=== PATIENT | male | born 1960 | race American Indian/Alaskan Native ===

== ENCOUNTER → 2016-07-20 | Outpatient (CLI) | payer OTHER ==
[~2016-07-20] MED LIST: ALLO100T PO; ASPI81CH2 PO; CLON0.1T12 PO; CYCL10TA6 PO; FENO200C6 PO; HYDR-3983 PO; LISI-461 PO; LOVA40TA4 PO; METO50TA7 PO; OMG3 PO
--- NOTE | 2016-07-20 10:15 | DIAGNOSTIC IMAGING REPORT ---
LEG LENGTH STUDY CLINICAL HISTORY: Lumbago. Leg length discrepancy. FINDINGS: 5 views of the lower extremities from a leg length examination are presented. The skeletal structures appear well mineralized. No fracture is identified involving the lower extremities or the bony pelvis. The hip, knee, and ankle joints are grossly maintained. The right lower extremity measures 88.1 cm and the left lower extremity measures 88.9 cm as measured from the femoral head to the tibial plafond. Surgical clips project over the spermatic cord bilaterally. The overlying soft tissues are otherwise normal in appearance. IMPRESSION: 8 mm of leg length discrepancy as above. Electronically signed by: Edmundo Irene M.D. 07/20/2016 10:14 AM Dictated Date/Time: 07/20/2016 10:12 AM
== END | disposition home or self-care (01) ==
LOC: C.RADBC 09:34
PROVIDERS: ATTEND Anesthesiology
DX: M54.5 Low back pain (principal); M21.751 Unequal limb length (acquired), right femur

== ENCOUNTER 2024-06-03 12:55 | Inpatient (IN) ==
--- NOTE | 2024-06-03 14:28 | Emergency Department Note ---
History of Present Illness General Chief complaint: Back Injury/Pain Stated complaint: LOWER BACK PAIN, LT LEG PAIN Time Seen by Provider: 06/03/24 14:14 History of Present Illness Maximum Pain Intensity: 10 This is a 63-year-old male that presents to the emergency department via private vehicle accompanied by loi with complaints of "back pain, lower extremity pain". The patient notes that this past Sunday he was lifting a heavy item when he notes that he then developed some back pain that has progressively worsened since that time. He previously has followed with pain management noting ongoing low back pain however today's presentation is different as he notes pain is now down the bilateral legs insead of just one. He tried biking earlier today without any relief of his symptoms. He notes that both legs are "numb". He does have history of nerve ablation previously. Patient denies any incontinence but does note perhaps some numbness overall. He does note some leg weakness with the back pain. Current pain 10/10. No abdominal pain. No preceding illness. No fevers or chills. No dysuria. No diarrhea. No vomiting. Home Medications Medication Instructions Recorded Confirmed Type naloxone 1 mg/mL injection syringe 1 mg IM ONCE PRN opioid overdose 12/19/18 05/12/24 Rx #2 mL albuterol sulfate 90 mcg/actuation 2 puffs inhalation Q4H PRN 08/22/19 05/12/24 Rx aerosol inhaler shortness of breath or wheezing #8.5 grams fenofibrate micronized 200 mg 200 mg PO DAILY #90 caps 04/09/23 05/12/24 Rx capsule lisinopril 30 mg tablet 30 mg PO DAILY #90 tabs 08/01/23 05/12/24 Rx metoprolol succinate 50 mg 50 mg PO DAILY #90 tabs 08/20/23 05/12/24 Rx tablet,extended release 24 hr rosuvastatin 20 mg tablet 20 mg PO DAILY #90 tabs 08/20/23 05/12/24 Rx nitroglycerin 0.4 mg sublingual 0.4 mg sublingual Q5M PRN chest 09/27/23 05/12/24 Rx tablet pain #25 tabs allopurinol 300 mg tablet 600 mg (2 x 300 mg) PO DAILY #180 10/22/23 05/12/24 Rx tabs sildenafil 100 mg tablet See Rx Instructions PO DAILY PRN 11/01/23 05/12/24 Rx sexual activity #30 tabs aspirin 81 mg tablet,delayed 81 mg PO DAILY 01/08/24 05/12/24 History release hydrocodone 7.5 mg-acetaminophen 1 - 2 tab PO .Q4-6HRS PRN pain 05/16/24 Rx 325 mg tablet #210 tabs Allergies Allergy/AdvReac Type Severity Reaction Status Date / Time iodine Allergy Severe RASH, HIVES Verified 05/12/24 08:27 atorvastatin AdvReac Intermediate ACHEY, Verified 05/12/24 08:27 JOINT STIFFNESS ezetimibe AdvReac Intermediate JOINT Verified 05/12/24 08:27 PAIN/STIFFNESS Past Med/Surg History Problem List (Updated 06/03/24 @ 22:16 by Rene Jewell PA-C) Low back pain (Acute) Bilateral lumbar radiculopathy (Acute) Osteoporosis Knee pain, right Spinal stenosis of lumbar region S/P coronary artery stent placement Colon cancer screening Myofascial pain Lumbar facet joint syndrome Left hip pain Left lumbar radiculitis Chronic narcotic use Carpal tunnel syndrome, left Chronic low back pain Gout Prediabetes Hypercholesterolemia (Chronic) History of heart artery stent (Chronic) "x 6" Gout (Chronic) Coronary artery disease (Chronic) Male erectile disorder (Acute) Lumbar radiculopathy (Acute) Hyperlipidemia (Acute) Cervicalgia of ycajbzty-hesehuw-qhqkk region (Acute) Cervical radicular pain (Acute) Carpal tunnel syndrome, bilateral (Acute) Benign essential hypertension (Acute) Ureteral stone (Acute) Medical History Fatigue Non-restorative sleep Snoring Hypokalemia Dyslipidemia Urinary frequency Prostate cancer screening declined Open wound of thumb Close exposure to COVID-19 virus Cough COVID-19 virus infection Chronic back pain Surgical History Trigger finger History of colonoscopy History of cardiac cath Family History Other Colonic polyp No pertinent family history Social History Smoking Status: Never smoker Hx Alcohol Use: Yes Hx Substance Use: No Preferred Language: Guatemalan Communication Ability: Effective Visual Impairment: No Limitations Hearing Ability: Normal Electromedical Equipment Repairer Required: No Beliefs That Will Affect Care: None marital status: Current Living Situation: Alone current occupational status: employed current occupation: [employer] Feels Safe at Home: Yes Childhood Exposure to Second-Hand Smoke: Yes caffeine: Yes during the past year weight has: remained stable Dental Care, Regularly: Yes Physical Activity Frequency: 3-4 Times per Week Physical Activity Frequency Comment: WALK, LIFT WEIGHTS, HIKE Seatbelt Use: always Sunscreen Use: Yes Review of Systems A total of 10 systems reviewed and were otherwise negative Physical Exam Vital Signs Vital Signs - 24 hr 06/03/24 13:10 06/03/24 15:01 06/03/24 15:08 Temperature 36.1 C L Temperature Source Temporal Artery Scan Pulse Rate 72 Pulse Rate [Apical] Respiratory Rate 16 24 20 Respiratory Effort / Characteristics Non-Labored Spontaneous Non-Labored Respiratory Depth Normal Normal Respiratory Pattern Regular Blood Pressure 134/87 Blood Pressure [Right Arm] Blood Pressure Mean 102 Blood Pressure Mean [Right Arm] Pulse Oximetry 98 95 Oxygen Delivery Method Room Air Room Air Sepsis Recent Fever Within 48 Hours No Sepsis New/Unexplained Change in Mental Status No Sepsis Action Taken by Nursing No Action Required 06/03/24 15:09 06/03/24 15:10 06/03/24 18:26 Temperature Temperature Source Pulse Rate 68 Pulse Rate [Apical] 70 70 Respiratory Rate 20 20 Respiratory Effort / Characteristics Non-Labored Respiratory Depth Normal Normal Respiratory Pattern Blood Pressure Blood Pressure [Right Arm] 165/97 H 162/84 H Blood Pressure Mean Blood Pressure Mean [Right Arm] 119 110 Pulse Oximetry 97 93 Oxygen Delivery Method Room Air Room Air Sepsis Recent Fever Within 48 Hours Sepsis New/Unexplained Change in Mental Status Sepsis Action Taken by Nursing 06/03/24 18:57 06/03/24 21:28 Temperature Temperature Source Pulse Rate 75 78 Pulse Rate [Apical] Respiratory Rate 16 Respiratory Effort / Characteristics Respiratory Depth Respiratory Pattern Blood Pressure 151/95 H Blood Pressure [Right Arm] Blood Pressure Mean 113 Blood Pressure Mean [Right Arm] Pulse Oximetry 95 Oxygen Delivery Method Room Air Sepsis Recent Fever Within 48 Hours Sepsis New/Unexplained Change in Mental Status Sepsis Action Taken by Nursing VITAL SIGNS - Vital signs and nursing notes were reviewed. Stable, afebrile. GENERAL -63-year-old male appearing his stated age who is in no acute distress. Patient is sitting upright in the examination bed. Well-appearing and nontoxic. Communicates well with provider and answers questions appropriately. SKIN - Without rashes. No meningeal or petechial rash. HEAD - NC/AT. EYES - Sclera anicteric. EARS - No deformities of external structures noted on gross examination bilaterally. NOSE - Midline and without cyanosis. No epistaxis or purulent drainage noted. MOUTH/OROPHARYNX - Without perioral cyanosis. NECK - Neck with FROM. No nuchal rigidity. LUNGS -clear to auscultation CARDIAC -regular rate and rhythm. ABDOMEN - Abdominal contour normal without pulsations or visible masses. BS normoactive all four quadrants. No tenderness, palpable masses, hepatosplenomegaly, or ascites noted. MUSCULOSKELETALthere is reproducible tenderness overlying the paraspinous musculature of the L-spine. No bony step-off or deformity. EXTREMITIES - No clubbing or peripheral cyanosis. No pretibial edema present. +5/5 strength noted in UE/LE bilaterally. NEUROLOGIC - Cranial nerves grossly intact. Sensory intact to light touch throughout the lower extremities without deficit. Patellar reflexes +2/4. PSYCH -alert, oriented and pleasant on exam. Course Administered Medications Miscellaneous (Remove Lidoderm Patch) 1 each N/A DAILY@2100 [facility] Stop: 07/03/24 20:59 Last Admin: 06/03/24 20:22 Dose: Not Given Documented By: KMS Discontinued Medications Dexamethasone Sodium Phosphate (DexamethasonePf 10 Mg/Ml Vial) 10 mg IV NOW ONE Stop: 06/03/24 15:40 Last Admin: 06/03/24 15:51 Dose: 10 mg Documented By: BERTHA Fentanyl Citrate (Fentanyl Citrate Pf 100 Mcg/2 Ml Vial) 100 mcg IV NOW STA Stop: 06/03/24 18:27 Last Admin: 06/03/24 18:32 Dose: 100 mcg Documented By: BERTHA Hydromorphone HCl (Hydromorphone Inj 0.5 Mg/0.5 Ml Syr) 0.5 mg IV NOW STA Stop: 06/03/24 14:29 Last Admin: 06/03/24 14:44 Dose: 0.5 mg Documented By: MAKENZIE Hydromorphone HCl (Hydromorphone Inj 0.5 Mg/0.5 Ml Syr) 0.5 mg IV NOW STA Stop: 06/03/24 15:39 Last Admin: 06/03/24 15:52 Dose: 0.5 mg Documented By: BERTAH Hydromorphone HCl (Hydromorphone Inj 1 Mg/Ml Syringe) 1 mg IV NOW STA Stop: 06/03/24 17:22 Last Admin: 06/03/24 17:27 Dose: 1 mg Documented By: BERTHA Hydromorphone HCl (Hydromorphone Inj 0.5 Mg/0.5 Ml Syr) 0.5 mg IV NOW STA Stop: 06/03/24 20:37 Last Admin: 06/03/24 20:42 Dose: 0.5 mg Documented By: CAT Acetaminophen (Ofirmev) 1,000 mg in 100 mls @ 400 mls/hr IV NOW STA Stop: 06/03/24 19:45 Last Infusion: 06/03/24 19:50 Dose: Infused Documented By: Admin: 06/03/24 19:35 Dose: 400 mls/hr Documented By: ALICIA Ketorolac Tromethamine (Ketorolac Tromethamine 15 Mg/Ml Vial) 10 mg IV NOW ONE Stop: 06/03/24 15:40 Last Admin: 06/03/24 15:51 Dose: 10 mg Documented By: BERTHA Lidocaine (Lidocaine 5% 1 Patch) 1 patch TD NOW STA Stop: 06/03/24 15:40 Last Admin: 06/03/24 15:51 Dose: 1 patch Documented By: BERTHA Lorazepam (Lorazepam 2 Mg/1 Ml Vial) 0.5 mg IV NOW STA Stop: 06/03/24 20:33 Last Admin: 06/03/24 21:45 Dose: Not Given Documented By: CAT Ondansetron HCl (Ondansetron Inj 2 Mg/Ml 2 Ml Vial) 4 mg IV NOW STA Stop: 06/03/24 14:29 Last Admin: 06/03/24 14:44 Dose: 4 mg Documented By: MAKENZIE Medical Decision Making Laboratory Data 06/03/24 14:30 06/03/24 14:30 Lab Results 06/03/24 Range/Units 14:30 WBC 6.99 (4.8-10.8) K/ul RBC 4.26 L (4.70-6.10) M/uL Hgb 13.7 L (14.0-18.0) g/dl Hct 40.4 L (42.0-52.0) % MCV 94.8 (80.0-100.0) fL MCH 32.2 (25.0-34.0) pg MCHC 33.9 (32.0-36.0) g/dL RDW Std Deviation 43.0 (36.4-46.3) fL RDW Coeff of Lydia 12.4 (11.5-14.5) % Plt Count 174 (130-400) K/uL MPV 9.7 (9.4-12.4) fL Immature Gran % (Auto) 0.3 % Neut % (Auto) 70.5 % Lymph % (Auto) 17.6 % Cedar % (Auto) 10.7 % Eos % (Auto) 0.6 % Baso % (Auto) 0.3 % Neut # (Auto) 4.93 (1.40-6.50) K/uL Lymph # (Auto) 1.23 (1.20-3.40) K/uL Cedar # (Auto) 0.75 H (0.11-0.59) K/uL Eos # (Auto) 0.04 (0.00-0.50) K/uL Baso # (Auto) 0.02 (0.00-0.20) K/uL Immature Gran # (Auto) 0.02 (0.01-0.20) K/uL Sodium 139 (136-145) mmol/L Potassium 4.1 (3.5-5.1) mmol/L Chloride 105 (98-107) mmol/L Carbon Dioxide 26 (21-32) mmol/L Anion Gap 8 (3-11) BUN 18 (6-23) mg/dl Creatinine 0.88 (0.6-1.4) mg/dl Est Cr Clr Drug Dosing Not Reportable eGFR 96.02 BUN/Creatinine Ratio 20.5 H (10-20) Glucose 120 H (70-99(Fasting)) mg/dl Calcium 10.5 H (8.6-10.3) mg/dl Total Bilirubin 0.5 (0.2-1.0) mg/dl AST 51 H (13-39) U/L ALT 42 (7-52) U/L Alkaline Phosphatase 55 (34-104) U/L Total Protein 7.2 (6.0-8.3) gm/dl Albumin 4.3 (3.4-5.0) gm/dl Globulin 2.9 (2.5-4.0) gm/dl Albumin/Globulin Ratio 1.5 (0.9-2) MDM Narrative Patient was seen and evaluated as above in room D03a. Review was performed of triage nursing notes and vital signs. Patient presents for evaluation of back pain down the legs with some numbness. Patient clinically well-appearing and nontoxic. Neurovascularly intact however cannot lay flat without severe pain. At this time noting the patient's past medical history and presentation today I do recommend MRI of the L-spine. Laboratory studies reveal no leukocytosis. Minor anemia noted with hemoglobin of 13.7. No emergent metabolic disturbance. Mild AST elevation of 51. Mild hypercalcemia 10.5. Mild hyperglycemia at 120. Patient was medicated here with several different types of IV analgesia as well as IV steroid for its anti-inflammatory effect. It was felt that the benefit of the medication outweighed risk. Despite medication, the patient continues with significant pain particularly when he attempts to lie flat therefore having difficulty laying flat to obtain MRI. Patient was carefully monitored throughout his time here in regard to pulse oxygenation noting medication received and clinically has been doing well. Patient is currently pending MRI at this time and seeing pain response to analgesia. Case signed out to Juan Francisco Schwartz PA-C at 5:50 PM at shift change. Please refer to further documentation regarding the patient's stay. GCS: 15 In the evaluation and treatment of this patient the following differential diagnoses were entertained: Sprain, strain, fracture, dislocation, subluxation, contusion, cauda equina syndrome, among others Impression & Plan Bilateral lumbar radiculopathy, Low back pain Discharge Plan Visit Data Chief Complaint: Back Injury/Pain Stated Complaint: LOWER BACK PAIN, LT LEG PAIN ED Provider: Paco Terrell ED Midlevel Provider: Juan Francisco Schwartz Discharge Problem: Bilateral lumbar radiculopathy, Low back pain Patient Disposition: Still a Patient Condition: Good Forms Stand Alone Forms: My [facility] [employer] Prescriptions Prescriptions: No Action fenofibrate micronized 200 mg capsule 200 mg PO DAILY Qty: 90 3RF lisinopril 30 mg tablet 30 mg PO DAILY Qty: 90 3RF rosuvastatin 20 mg tablet 20 mg PO DAILY Qty: 90 3RF Rx Instructions: per Dr. Gomez 09/2020 metoprolol succinate 50 mg tablet extended release 24 hr 50 mg PO DAILY Qty: 90 3RF nitroglycerin 0.4 mg tablet, sublingual 0.4 mg SL Q5M PRN (Reason: chest pain) Qty: 25 3RF Rx Instructions: pt does not need immediately. allopurinol 300 mg tablet 600 mg PO DAILY Qty: 180 3RF sildenafil 100 mg tablet See Rx Instructions PO DAILY PRN (Reason: sexual activity) Qty: 30 11RF Rx Instructions: 1/2-1 tab PO daily PRN; administer 30 minutes to 4 hours before activity hydrocodone-acetaminophen 7.5-325 mg tablet 1 - 2 tab PO .Q4-6HRS MDD 7 PRN (Reason: pain) Qty: 210 0RF naloxone 1 mg/mL syringe 1 mg IM ONCE PRN (Reason: opioid overdose) Qty: 2 0RF albuterol sulfate 90 mcg/actuation HFA aerosol inhaler 2 puffs INH Q4H PRN (Reason: shortness of breath or wheezing) Qty: 8.5 5RF aspirin 81 mg Tablet,Delayed Release (/Ec) 81 mg PO DAILY Referrals Referrals: Edmundo Luz MD [Primary Care Provider] -
[2024-06-03] MEDS: HYDROmorphone INJ 0.5 MG/0.5 ML SYR IV STA ×3 (14:44→20:42)
[2024-06-03] MEDS: ONDANSETRON INJ 2 MG/ML 2 ML VIAL IV STA (14:44)
[2024-06-03 15:14] LABS: Basophils # (auto) 0.02 K/uL (0.00-0.20); Basophils % (auto) 0.3 %; Eosinophils # (auto) 0.04 K/uL (0.00-0.50); Eosinophils % (auto) 0.6 %; Hematocrit (blood only) 40.4 % (42.0-52.0); Hemoglobin 13.7 g/dl (14.0-18.0); Immature Granulocytes # (auto) 0.02 K/uL (0.01-0.20); Immature Granulocytes % (auto) 0.3 %; Lymphocytes # (auto) 1.23 K/uL (1.20-3.40); Lymphocytes % (auto) 17.6 %; Mean Corpuscular Hemoglobin 32.2 pg (25.0-34.0); Mean Corpuscular Hgb Conc 33.9 g/dL (32.0-36.0); Mean Corpuscular Volume 94.8 fL (80.0-100.0); Mean Platelet Volume 9.7 fL (9.4-12.4); Monocytes # (auto) 0.75 K/uL (0.11-0.59); Monocytes % (auto) 10.7 %; Neutrophils # (auto) 4.93 K/uL (1.40-6.50); Neutrophils % (auto) 70.5 %; Platelet Count 174 K/uL (130-400); RDW Coefficient of Variation 12.4 % (11.5-14.5); Red Blood Count 4.26 M/uL (4.70-6.10); White Blood Count 6.99 K/ul (4.8-10.8)
[2024-06-03] MEDS: LIDOCAINE 5% 1 PATCH TD STA (15:51)
[2024-06-03] MEDS: KETOROLAC TROMETHAMINE 15 MG/ML VIAL IV ONE (15:51)
[2024-06-03] MEDS: dexAMETHasone**PF** 10 MG/ML VIAL IV ONE (15:51)
[2024-06-03 16:01] LABS: Albumin Level 4.3 gm/dl (3.4-5.0); Anion Gap 8 (3-11); Bilirubin,Total 0.5 mg/dl (0.2-1.0); Calcium 10.5 mg/dl (8.6-10.3); Carbon Dioxide 26 mmol/L (21-32); Chloride 105 mmol/L (98-107); Potassium 4.1 mmol/L (3.5-5.1); Sodium 139 mmol/L (136-145)
[2024-06-03 16:07] LABS: Alanine Aminotransferase 42 U/L (7-52); Albumin Globulin Ratio 1.5 (0.9-2); Alkaline Phosphatase 55 U/L (34-104); Aspartate Aminotransferase 51 U/L (13-39); BUN Creatinine Ratio 20.5 (10-20); Blood Urea Nitrogen 18 mg/dl (6-23); Globulin 2.9 gm/dl (2.5-4.0); Glucose 120 mg/dl (70-99(Fasting)); Total Protein 7.2 gm/dl (6.0-8.3)
[2024-06-03] MEDS: HYDROmorphone INJ 1 MG/ML SYRINGE IV STA (17:27)
--- NOTE | 2024-06-03 17:47 | Emergency Department Note ---
ED Visit Note This patient's care was transferred to ca from Rene eJwell PA-C at change of shift. At the time of transfer of care, the patient was awaiting an MRI of the lumbar spine. It is noted that the patient has received multiple doses of analgesics for pain control. According to [place], the patient has had prior history of back issues. It is noted that the patient has received multiple rounds of IV Dilaudid (3 doses) prior to transfer of care. When MRI was available for testing, the patient reported that he still had difficulty laying on his back. At this point, I did order additional IV fentanyl, again without success. At this point, the patient reports that he is concerned that he will fall at home as he is having difficulty with ambulation and going up steps. With his intractable pain, [facility] the [facility]. The patient was also discussed with Dr. Terrell, ED attending physician, who recommended a dose of IV Ativan in case we may be able to get the patient into the MRI yet this evening. Patient was in agreement with this plan as well. It is noted, and I was advised by Dr. Alicia, the with worsening symptoms, he did a noncontrast CT of the lumbar spine, which showed severe spinal canal stenosis at L2-3, L3-4 and L4-5, with moderately severe bilateral L4-5 neuroforaminal stenosis. Please see Dr. Barnett's dictation for further treatment and final disposition. DIAGNOSIS: 1. Intractable lumbar pain 2. Severe lumbar spinal canal stenosis, multilevel .
[2024-06-03] MEDS: fentaNYL citrate PF 100 MCG/2 ML VIAL IV STA (18:32)
--- OUTSIDE RECORDS SUMMARY | 2024-06-03 19:03 | External Medical Summary | Summary of Care ---
Author Name Unknown Organization [facility] Address [address] [place] [address] Phone [phone] Care Team Providers [facility] Name Role Phone Edmundo Luz MD Primary Care Provider [phone] Encounter Details Date Type Department Care Team (Latest Contact Info) Description 05/13/2024 8:27 AM EST - 05/13/2024 11:59 PM EST Hospital Encounter Radiology, [facility] [address], [place] [id number] Arrived Discharge Disposition: Home - Self Care Allergies Active Allergy Reactions Criticality Noted Date Comments Iodinated Contrast Media Flushing,Itching 06/26 Atorvastatin Muscle pain 06/26/2016 documented as of this encounter (statuses as of 05/14/2024) Medications METOPROLOL XL TBCR 50 MG OR Take 1 Tablet by mouth in the morning. Active ALLOPURINOL 300 MG PO TABS Take 1.5 Tablets by mouth in the morning. Active NITROGLYCERIN 0.[address] 1 Tablet under the tongue every 5 minutes as needed. Active Hydrocodone-Rocael taminophen 7.5-325 MG per tablet Take 1 Tablet by mouth every 6 hours as needed for Pain. Active aspirin enteric coated 81 MG TBEC Take 1 Tablet by mouth in the morning. Active Rosuvastatin Calcium 20 MG Oral Tablet (Crestor) Take 1 Tab by mouth daily. 90 Tab 3 1 Active Lisinopril 30 MG Oral Tablet Take 1 Tablet by mouth in the morning. 1 Active Albuterol Sulfate 108 (90 Base) MCG/ACT Inhalation Aerosol Powder Breath Activated Inhale 2 Puffs by mouth every 4 hours as needed for Shortness of Breath or Wheezing. Active Fenofibrate 145 MG Oral Tablet (Tricor) Take 1 Tablet by mouth in the morning. Active documented as of this encounter (statuses as of 05/14/2024) Active Problems Problem Noted Date Diagnosed Date Coronary artery disease involving ho-chunk coronar y artery 02/13/2020 HTN, goal below 130/80 02/13/2020 irritated moles 10/20/2002 documented as of this encounter (statuses as of 05/14/2024) Immunizations Name Administration Dates Next Due COVID-19 mRNA, LNP-s, No Pre serve, 2-Dose Series (Tynt) 11/06/2020,09/21/2020 Seasonal Influenza, PF, 6 M & above, IM , (FluLaval or Fluzone) 02/11/2021 Zoster Vaccine Recombinant (Shingrix) 02/26/2020 ,07/01/2019 documented as of this encounter Social History Tobacco Use Types Packs/Day Years Used Date Smoking Tobacco: Former Cigarettes Q uit: 06/04/1988 Smokeless Tobacco: Never Alcohol Use Standard Drinks/Week Comments Yes 0 (1 standard drink = 0.6 oz pur e alcohol) occ. Utilities Answer Date Recorded Do you have trouble paying y our heating, water, or electric bill? (Adult - for ages 18 years and over) Not on file 11/20/2023 Is your family able to pay t he heat, water, or electric bill? (Household - for ages 0-17 years) Not on file 11/20/2023 Does your family have access to good internet? (Household - for ages 0-17 years) Not on file 11/20/2023 Social Connections Answer Date Recorded How often do you feel lonely or isolated from those around you? (Adult - for ages 18 years and over) Not on file 11/20/2023 Sex and Gender Information Value Date Recorded Sex Assigned at Not on file Legal Sex Male 5:50 AM EST Gender Identity Not on file Sexual Orientation Not on file documented as of this encounter Plan of Treatment Upcoming Encounters Date Type Department Care Team (Latest Contact Info) Description 07/18/2024 10:30 AM EST Hospital Encounter ENDO [facility], Endoscopy [address] [place] [phone] Azar Winters MD [address] [place] [address] 07/18/2024 10:30 AM EST - 07/18/2024 11:00 AM EST Surgery ENDO [facility] End[facility] [address] [phone] Azar Winters MD [address] [place] [address] COLONOSCOPY FLEXIBLE PROXIMAL DIAGNOSTIC Scheduled Procedures Name Priority Associated Diagnoses Date/Ti me COLONOSCOPY FLEXIBLE PROXIMAL DIAGNOSTIC Special screening for malignant neoplasms, colon 07/18/2024 10:30 AM EST Health Maintenance Due Date Last Done Comments Depression Screening 1971 HIV Screening 1974 Albumin/Creatinine Ratio 1977 Hepatitis C Screening 1977 DTap/Tdap Vaccines (1 - Tdap) 04/02/2002 04/01/2002, 04/01/2002 (Done elsewhere) Cologuard 2004 Fecal Occult Blood Test 2004 Sigmoidoscopy 2004 Colonoscopy 06/29/2019 06/29/2016, 06/29/2016 Colorectal Cancer Screening 06/29/2019 GFR 08/10/2022 08/10/2021, 12/01/2021, 02/09/2021, Additional history exists COVID-19 Vaccine ( season) 2024 05/12/2021, 11/06/2020, 09/21/2020 Diabetes Screening 08/10/2024 08/10/2021, 1 07/12/2020, 05/11/2021, Additional history exists Zoster Vaccines Completed 02/26/2020, 07/01/2019 Pneumococcal Vaccine: Pediatrics (0 to 5 Years) and At-Risk Patients (6 to 64 Years) Aged Out 06/13/2023 No longer eligible based on patient's age to complete this topic Influenza Vaccine (FLU shot) Completed 08/2023, 02/23/2022, 02/11/2021, Additional history exists HPV (Gardasil) Vaccine Aged Out No lo nger eligible based on patient's age to complete this topic Hepatitis B Vaccine Aged Out No longe r eligible based on patient's age to complete this topic MENINGOCOCCAL (MENACTRA/MENVEO) Aged Out No longer eligible based on patient's age to complete this topic documented as of this encounter Medical Devices Not on filedocumented as of this encounter Procedures Procedure Name Priority Date/Time Associated Diagnosis Comments DEXA SCAN/BONE MINERAL AXIAL Routine 05/13/2024 8:50 AM EST Age-related osteoporosis without current pathological fracture documented in this encounter Results * DEXA SCAN/BONE MINERAL AXIAL (05/13/2024 8:50 AM EST) Anatomical Region Laterality Modality Dexa, Vertebra, Spine, Hip, Pelvis Nuclear Medicine Impressions 05/13/2024 2:00 PM EST S: Fracture risk is based on current National Osteoporosis Foundation (www.nof.org) Clinicians Guide and [place] Association of Clinical Endocrinology (AACE) Guidelines (www.aace.com) and the application of current WHO FRAX tool (https://www.darya.ac.uk/FRAX/) as well as the 2017 [place] [employer] Glucocorticoid Induced Osteoporosis (GIOP) Guidelines (rheumatology.org/Practice-Quality/Clinical-Support/Ininjqin-Ogpcurug-Lzmqv lines) using Bone mineral density derived T-scores and clinical risk factors obtained from the patient questionnaire. 1. The fracture risk is LOW/MODERATE (does not meet NOF criteria for treatment) 2. The quality of the examination is GOOD. L4 has been deleted because of the significant variation in bone density from the rest of the lumbar spine. 3. No previous study for comparison. SUGGESTIONS: Information concerning the evaluation and treatment of osteoporosis can be found at the National Osteoporosis Foundation website (www.nof.org) and [place] Association of Clinical Endocrinology (AACE-www.aace.com). Osteoporosis prevention and treatment begins by modifying risk factors (such as smoking cessation and avoiding alcohol excess) and by participating in weight-bearing activities and exercise. Issues related to fall prevention and home safety should be addressed. Current NOF guidelines suggest 1200 to 1500 mg of calcium from diet and or supplemental sources. It is generally felt best to get calcium from one s diet. Calcium carbonate and calcium citrate are common calcium supplement choices in most local pharmacies. If the patient is taking a proton pump inhibitor, then calcium citrate should be the preferred supplement, if that is necessary. NOF guidelines for vitamin D are 800 to 1000 units of vitamin D3 daily. However, this may best be guided by measurement of 25-OH vitamin-D level, aiming for a level between 30 to 50 units (ng/ml). Additional information can be found at the FRAX website (https://www.darya.ac.uk/FRAX/), and the [place] College of Rheumatology website (https://www.rheumatology.org/Practice-Quality/Clinical-Support/Clinical-Pr actice-Guidelines). 1. No specific prescription therapy is needed at this point in time. 2. A repeat study should be considered in 5 years MAL ECHEVARRIA M.D. FRANKO Certified Clinical Edge Worker Department of Rheumatology [facility] [place] Narrative 05/13/2024 2:00 PM EST Radiology, [facility] DXA Performed: 05/13/24 DXA Resulted: 05/13/2024 Vince Seymour Reason for testing: Age-appropriate screening Osteoporosis treatment (per questionnaire): A. Previous treatment: NONE B. Current treatment: NONE Major risk factors: personal history of fracture after age 50-right tibial plateau fracture Using a [employer] [place] images of the lumbar spine, left hip were obtained using DXA.. The bone mineral density and T scores [standard, young, normal, male population] are as follows: RESULTS: Lumbar spine: 0.944 gms/cm2 T-score: -1.1 Left femoral neck: 0.789 gms/cm2 T-score: -1.0 Using the NOF/WHO FRAX calculator, the 10 year absolute risk for any major osteoporotic fracture is 8 % and the risk for hip fracture is 0.8 %. us Edmundo Luz MD RADIOLOGY ([facility]) Final R esult documented in this encounter Care Teams [facility] Relationship Specialty Start Date End Date Edmundo Luz MD [address] [facility] [place] [address] PCP - General 10/20/02 documented as of this encounter
[2024-06-03] MEDS: ACETAMINOPHEN 1,000 MG/100 ML VIAL IV STA (19:35)
--- NOTE | 2024-06-03 20:13 | History & Physical Report ---
Date of Service June 03, 2024 Assessment & Plan (1) Spinal stenosis of lumbar region: (2) Bilateral lumbar radiculopathy: (3) Gout: (4) Coronary artery disease: Plan Vince Seymour is a 63 year-old male with a medical history significant for osteoporosis, spinal stenosis of lumbar region, CAD, gout, prediabetes, HLD who presented to the ED for increased lower back pain. Severe Lumbar Stenosis -Acute flare of chronic lumbar back pain after catching himself from falling while holding heavy object -Not controlled by home Vicodin prescription -New bilateral leg and groin numbness since presenting to ED, no loss of bowel or bladder control. Numbness/tingling seems to change positioninally per patient. -CT lumbar spine was ordered prior to our admission of the patient due to the concern of symptoms that could represent cauda equina -CT lumbar spine: "Severe spinal canal stenosis at L2-3, L3-4 and L4-5. Recommend MRI for further evaluation. Moderately severe bilateral L4-5 neuroforaminal stenoses." -Will attempt to order MRI again, this is necessary for proper diagnosis -Ortho spine consulted, as patient is established with [facility] ortho and pain management. Appreciate recommendations -Received 10mg IV dexamethasone in ED. Ordered additional 6mg IV dexamethasone for a.m. Additional recommendations for steroids per ortho -Pain control with IV dilaudid, Tylenol, lidocaine patch CAD, HTN- continue metoprolol, lisinopril, statin Gout- continue allopurinol Admit to: med/surg VTE Prophylaxis: Lovenox Diet: NPO Code Status: Full code History of Present Illness Primary Care Provider: Edmundo Luz MD Vince Seymour is a 63 year-old male with medical history significant for HLD, gout, HTN, CAD who presented to the ED for concerns of worsening lower back pain. Patient reports that over the weekend he was carrying a heavy container of meat up the stairs when he missed his footing and had to to catch himself and the container of meat from falling- this action caused a sudden pain in his lower back. Patient follows with [facility] as well as orthopedics- had last L4-L5 epidural steroid injection in April. The day after the above incident, patient endorses increased pain but was still able to do daily activities. However last night he was unable to sleep at all due to the pain, despite taking his prescribed Vicodin which is what prompted his trip to the ED. At present, patient endorses significant pain at middle of low back as well as numbness/tingling going down his legs which seems to change based on the position he is sitting. States he went to use the urinal at his bedside and was able to urinate however felt that his groin area felt off/numb. Denies loss of bowel or bladder control. While in the ED, patient was ordered an MRI but patient was unable to lay flat for long enough for the imaging to be completed. Patient states he was told he could possibly have sedation for the MRI but they wouldn't be able to do this now as he recently ate. Denies chest pain, shortness of breath, fever, bodyaches or chills. ED Course: -CBC, CMP -IV Dilaudid, Fentanyl, Tylenol Allergies Allergy/AdvReac Type Severity Reaction Status Date / Time iodine Allergy Severe RASH, HIVES Verified 06/04/24 10:40 atorvastatin AdvReac Intermediate ACHEY, Verified 06/04/24 10:40 JOINT STIFFNESS ezetimibe AdvReac Intermediate JOINT Verified 06/04/24 10:40 PAIN/STIFFNESS Home Medications Medication Instructions Recorded Confirmed Type naloxone 1 mg/mL injection syringe 1 mg IM ONCE PRN opioid overdose 12/19/18 06/04/24 Rx #2 mL albuterol sulfate 90 mcg/actuation 2 puffs inhalation Q4H PRN 08/22/19 06/04/24 Rx aerosol inhaler shortness of breath or wheezing #8.5 grams fenofibrate micronized 200 mg 200 mg PO DAILY #90 caps 04/09/23 06/04/24 Rx capsule lisinopril 30 mg tablet 30 mg PO DAILY #90 tabs 08/01/23 06/04/24 Rx metoprolol succinate 50 mg 50 mg PO DAILY #90 tabs 08/20/23 06/04/24 Rx tablet,extended release 24 hr rosuvastatin 20 mg tablet 20 mg PO DAILY #90 tabs 08/20/23 06/04/24 Rx nitroglycerin 0.4 mg sublingual 0.4 mg sublingual Q5M PRN chest 09/27/23 06/04/24 Rx tablet pain #25 tabs allopurinol 300 mg tablet 600 mg (2 x 300 mg) PO DAILY #180 05/20/24 01/01/25 Rx tabs sildenafil 100 mg tablet See Rx Instructions PO DAILY PRN 11/01/23 06/04/24 Rx sexual activity #30 tabs aspirin 81 mg tablet,delayed 81 mg PO DAILY 01/08/24 06/04/24 History release hydrocodone 7.5 mg-acetaminophen 1 - 2 tab PO .Q4-6HRS PRN pain 05/16/24 06/04/24 Rx 325 mg tablet #210 tabs Past Med/Surg History Problem List (Updated 06/04/24 @ 00:09 by Phyllis Ballard) Low back pain (Acute) Bilateral lumbar radiculopathy (Acute) Osteoporosis Knee pain, right Spinal stenosis of lumbar region S/P coronary artery stent placement Colon cancer screening Myofascial pain Lumbar facet joint syndrome Left hip pain Left lumbar radiculitis Chronic narcotic use Carpal tunnel syndrome, left Chronic low back pain Gout Prediabetes Hypercholesterolemia (Chronic) History of heart artery stent (Chronic) "x 6" Gout (Chronic) Coronary artery disease (Chronic) Male erectile disorder (Acute) Lumbar radiculopathy (Acute) Hyperlipidemia (Acute) Cervicalgia of nysqnafa-jyafayi-doymn region (Acute) Cervical radicular pain (Acute) Carpal tunnel syndrome, bilateral (Acute) Benign essential hypertension (Acute) Ureteral stone (Acute) Medical History Fatigue Non-restorative sleep Snoring Hypokalemia Dyslipidemia Urinary frequency Prostate cancer screening declined Open wound of thumb Close exposure to COVID-19 virus Cough COVID-19 virus infection Chronic back pain Surgical History Trigger finger History of colonoscopy History of cardiac cath Family History Other Colonic polyp No pertinent family history Social History Smoking Status: Never smoker Second Hand Exposure: No; Do You Dip or Chew Tobacco: No; Hx Alcohol Use: Yes Alcohol type: beer Hx Substance Use: No Preferred Language: [place] Islander Communication Ability: Effective Visual Impairment: No Limitations Hearing Ability: Normal Teacher Vocal Required: No Beliefs That Will Affect Care: None marital status: Current Living Situation: Alone current occupational status: employed current occupation: [employer] Feels Safe at Home: Yes Childhood Exposure to Second-Hand Smoke: Yes caffeine: Yes during the past year weight has: remained stable Dental Care, Regularly: Yes Physical Activity Frequency: 3-4 Times per Week Physical Activity Frequency Comment: WALK, LIFT WEIGHTS, HIKE Seatbelt Use: always Sunscreen Use: Yes Assistive Devices: Glasses Review of Systems Review of Systems: As per above Physical Exam Constitutional: WD/WN, vitals as above Eyes: + anicteric sclerae; no conjunctival abn ormality ENMT: Ears: no external ear abnormality Nose: no external nose abnormality Moist mucous membranes Respiratory: normal respiratory effort, lungs clear to auscultation Cardiovascular: Rate/Rhythm: regular rate and regular rhythm Extremities: no edema Gastrointestinal (Abdomen): Inspection/Auscultation: abdomen normal to inspection; abdomen not distended Percussion/Palpation: abdomen soft; no guarding Musculoskeletal: Significant pain with palpation of spinous processes of lumbar spine. Hype rtonicity at paraspinal musculature in same region. Exam significantly limited due to severe pain with all movement. Skin: no rashes, warm and dry Psychiatric: A+Ox3, euthymic affect Results & Data Results & Data Vital Signs (Past 12 Hours) Vital Signs Temp Pulse Pulse Resp BP BP Pulse Ox 06/03/24 18:57 75 06/03/24 18:26 70 20 162/84 H 93 06/03/24 15:10 68 06/03/24 15:09 70 20 165/97 H 97 06/03/24 15:08 20 06/03/24 15:01 24 95 06/03/24 13:10 36.1 C L 72 16 134/87 98 O2 Del Method 06/03/24 18:57 06/03/24 18:26 Room Air 06/03/24 15:10 06/03/24 15:09 Room Air 06/03/24 15:08 06/03/24 15:01 Room Air 06/03/24 13:10 Room Air Medications Administered Lumbar Spine CT 06/03/24 20:36 Exam(s): CT L SPINE EXAM: CT Lumbar Spine Without Intravenous Contrast CLINICAL HISTORY: Reason for exam: lower back pain, groin numbness. TECHNIQUE: Axial computed tomography images of the lumbar spine without intravenous contrast. CTDI is 39.4 mGy and DLP is 1143.22 mGy-cm. Automated exposure control was utilized for the study. A dose lowering technique was utilized adhering to the principles of ALARA. COMPARISON: No relevant prior studies available. FINDINGS: Vertebrae: Unremarkable. No acute fracture. Discs/spinal canal/neural foramina: No acute findings. Severe spinal canal stenosis at L2-3, L3-4 and L4-5. Moderately severe bilateral L4-5 neuroforaminal stenoses. Soft tissues: Hepatic steatosis. IMPRESSION: Severe spinal canal stenosis at L2-3, L3-4 and L4-5. Recommend MRI for further evaluation. Moderately severe bilateral L4-5 neuroforaminal stenoses. Electronically signed by: Tracy West MD 06/03/24 23:13 PM Supervising Physician Co-Signing Physician Notes Attending addendum: I have physically seen this patient, have supervised the medical residents activities, and agree with the H&P unless as otherwise noted. Assessment and Plan: The patient is a 63-year-old male with a past medical history including osteoporosis, lumbar spinal stenosis, CAD, gout, prediabetes and hyperlipidemia. Presents to the emergency department due to severely worsened lower back pain. #Severe lumbar stenosis- Patient presented to the ED with new bilateral leg and groin numbness without loss of bowel or bladder control. We ordered CT scan of the lumbar spine which showed severe spinal canal stenosis at L2-3, L3-4, L4-5 MRI is recommended for further evaluation, which has been ordered Will give dexamethasone 10 mg IV now, and then 6 mg IV every morning Serial pain control with lidocaine patch, Tylenol and IV Dilaudid as noted Consult orthopedic spine surgery Of note, patient has been seen by [facility] pain management and orthopedic surgery in the past. He last had an L4-L5 epidural steroid injection in April CAD/hypertension- Continue metoprolol, lisinopril and statin Gout- Continue allopurinol Resident Activity Tracking Resident Involvement: Resident Care Provided Care Provided: Adult [facility] Medicine
--- NOTE | 2024-06-03 21:21 | Emergency Department Note ---
ED Visit Note I was consulted by the Advanced Practice Provider, Rene. I personally made/approved the management plan and take responsibility for the patient christina echevarria. I performed a substantive portion of the visit. This includes the aspects of: -History/Physical/Personally seeing the patient. On reassessment currently no saddle anesthesia or bowel or bladder incontinence although the patient noted some tingling earlier. -MDM Patient is required multiple rounds of medications for comfort. His lower extremity numbness has waxed and waned and it is positional. Currently he is doing much better however he is very uncomfortable with trying to lay flat and MR imaging has been unsuccessful at this point. Further management in the hospital was deemed necessary. .
[2024-06-03] MEDS: LORazepam 2 MG/1 ML VIAL IV STA (21:45)
[2024-06-03] MEDS: HYDROmorphone INJ 0.5 MG/0.5 ML SYR IV PRN (22:15)
--- NOTE | 2024-06-03 23:14 | CT Scan Report ---
Exam(s): CT L SPINE EXAM: CT Lumbar Spine Without Intravenous Contrast CLINICAL HISTORY: Reason for exam: lower back pain, groin numbness. TECHNIQUE: Axial computed tomography images of the lumbar spine without intravenous contrast. CTDI is 39.4 mGy and DLP is 1143.22 mGy-cm. Automated exposure control was utilized for the study. A dose lowering technique was utilized adhering to the principles of ALARA. COMPARISON: No relevant prior studies available. FINDINGS: Vertebrae: Unremarkable. No acute fracture. Discs/spinal canal/neural foramina: No acute findings. Severe spinal canal stenosis at L2-3, L3-4 and L4-5. Moderately severe bilateral L4-5 neuroforaminal stenoses. Soft tissues: Hepatic steatosis. IMPRESSION: Severe spinal canal stenosis at L2-3, L3-4 and L4-5. Recommend MRI for further evaluation. Moderately severe bilateral L4-5 neuroforaminal stenoses. Electronically signed by: Tracy West MD 06/03/24 23:13 PM
[2024-06-04] MEDS ORDERED: ONDANSETRON INJ 2 MG/ML 2 ML VIAL IV PRN (00:16)
[2024-06-04] MEDS ORDERED: HYDROmorphone INJ 0.5 MG/0.5 ML SYR IV PRN (00:16)
[2024-06-04] MEDS ORDERED: ALUMINUM/MAGNESIUM SUSP 30 ML UDC PO PRN (00:16)
[2024-06-04] MEDS ORDERED: POLYETHYLENE (MIRALAX) 17 GM PACK PO PRN (00:16)
[2024-06-04] MEDS: HYDROmorphone INJ 0.5 MG/0.5 ML SYR IV PRN (02:14)
[2024-06-04] MEDS: ACETAMINOPHEN 325 MG TAB PO PRN (02:17)
[2024-06-04 04:57] LABS: Basophils # (auto) 0.01 K/uL (0.00-0.20); Basophils % (auto) 0.1 %; Hematocrit (blood only) 39.6 % (42.0-52.0); Hemoglobin 13.2 g/dl (14.0-18.0); Immature Granulocytes # (auto) 0.05 K/uL (0.01-0.20); Immature Granulocytes % (auto) 0.6 %; Lymphocytes # (auto) 0.77 K/uL (1.20-3.40); Lymphocytes % (auto) 8.8 %; Mean Corpuscular Hemoglobin 32.2 pg (25.0-34.0); Mean Corpuscular Hgb Conc 33.3 g/dL (32.0-36.0); Mean Corpuscular Volume 96.6 fL (80.0-100.0); Mean Platelet Volume 9.6 fL (9.4-12.4); Monocytes # (auto) 0.22 K/uL (0.11-0.59); Monocytes % (auto) 2.5 %; Neutrophils # (auto) 7.66 K/uL (1.40-6.50); Platelet Count 171 K/uL (130-400); RDW Coefficient of Variation 12.3 % (11.5-14.5); RDW Standard Deviation 43.3 fL (36.4-46.3); White Blood Count 8.71 K/ul (4.8-10.8)
[2024-06-04 04:58] LABS: Appearance Urine Clear (Clear); Bilirubin Urine Negative (Negative); Blood Urine Negative (Negative); Color Urine Yellow; Glucose Urine UA Negative (Negative); Ketones Urine Trace (Negative); Leukocyte Esterase Urine Negative (Negative); Nitrite Urine Negative (Negative); Protein Urine Negative (Negative); Specific Gravity Urine 1.036 (1.000-1.030); Urobilinogen Urine Negative (Negative)
[2024-06-04 05:17] LABS: Albumin Globulin Ratio 1.6 (0.9-2); Albumin Level 4.2 gm/dl (3.4-5.0); BUN Creatinine Ratio 26.7 (10-20); Bilirubin,Total 0.5 mg/dl (0.2-1.0); Calcium 10.1 mg/dl (8.6-10.3); Creatinine Clr Calc Pharmacy 98.8 ml/min; Globulin 2.6 gm/dl (2.5-4.0); Potassium 4.3 mmol/L (3.5-5.1); Total Protein 6.8 gm/dl (6.0-8.3)
[2024-06-04] MEDS: LIDOCAINE 5% 1 PATCH TD STA (06:41)
[2024-06-04] MEDS: CYCLOBENZAPRINE HCL 5 MG TAB PO PRN (07:13)
[2024-06-04] MEDS ORDERED: dexAMETHasone 6 MG in SYRINGE 0 ML IV SCH (09:00)
[2024-06-04] MEDS: dexAMETHasone 6 MG in SYRINGE 0 ML IV SCH (09:29)
[2024-06-04] MEDS: MoRPHine SULFATE 2 MG/ML CARP IV PRN (09:29)
[2024-06-04] MEDS: lisinopril 10 MG TAB PO SCH (09:32)
[2024-06-04] MEDS: METOPROLOL SUCC 50MG EXT REL TAB PO SCH (09:32)
[2024-06-04] MEDS: ROSUVASTATIN CALCIUM 20 MG TAB PO SCH (09:32)
[2024-06-04] MEDS: allopurinoL 300 MG TAB PO SCH (09:32)
[2024-06-04] MEDS: ENOXAPARIN INJ 40 MG/0.4 ML SYR SQ SCH (09:32)
[2024-06-04] MEDS: ASPIRIN 81 MG ECTAB PO SCH (09:33)
--- NOTE | 2024-06-04 09:57 | Hospitalist Progress Note ---
Date of Service June 04, 2024 Assessment & Plan (1) Bilateral lumbar radiculopathy: Plan: Supportive care. Parenteral steroid therapy. Await lumbar MRI results. Hopefully he did not suffer a new herniated disc in the lumbar region (2) Spinal stenosis of lumbar region: Plan: Known history. Await MRI scan. Orthopedic spine surgery consult pending. Continue parenteral steroid therapy (3) Coronary artery disease: Plan: With history of PCI. Stable. Continue current medical management (4) Hypercholesterolemia: Plan: Stable. Continue statin therapy (5) Benign essential hypertension: Plan: Stable. Continue current medical management Plan Hopeful discharge back to his home within the next day or 2 Admission and Anticipated Discharge Date Admission Date: June 03, 2024 Subjective Alert and oriented. He continues to have paresthesia involving both lower extremities along with a lumbar pain from recent aggravation of the known lumbar stenosis. He received intravenous dexamethasone on admission and is now started on intravenous methylprednisolone 60 mg every 6 hours. Pain control measures with morphine as needed. Orthopedic spine consultation pending Review of Systems 2 Review of Systems: Constitutionalno fever or chills ENTno blurred vision, no double vision, no epistaxis, no sore throat Respiratoryno cough, no wheezing, no shortness of breath Cardiacno palpitations, no chest pain, no syncope Sowmya nausea, vomiting, diarrhea, melena, hematochezia GUno urinary retention, no urinary incontinence, no dysuria, no hematuria Musculoskeletallumbar area pain. No muscle tenderness Skinno bruising, no rashes, no pruritus Neurono isolated weakness. Bilateral lower extremity paresthesia Psychno depression, no anxiety Physical Exam 2 Physical Exam: General-alert and oriented x3, no fever, no chills HEENT-head atraumatic and normocephalic, pupils equal and reactive to light, extraocular muscles intact Neck-no lymphadenopathy or thyromegaly, trachea midline Chest-clear to auscultation. No rales, wheezing or rhonchi Cardiac-regular rate and rhythm, normal S1 and S2 Abdomen-normal bowel sounds, no hepatosplenomegaly Extremities-no cyanosis, clubbing, or edema in either lower leg. Lumbar spine area is tender to palpation Neuro-cranial nerves II through XII intact, motor function within normal limits, strength symmetrical, no focal deficits. He does have paresthesia involving both lower extremities Psych-normal affect, normal mood Results & Data Results & Data Vital Signs (Past 12 Hours) Vital Signs Pulse Pulse Resp BP BP Pulse Ox O2 Del Method 06/04/24 09:25 83 18 151/85 H 95 Room Air 06/04/24 07:10 66 06/04/24 06:30 66 20 06/04/24 06:00 60 16 06/04/24 05:30 69 13 06/04/24 05:09 79 15 95 Room Air 06/04/24 05:00 152/80 H 06/04/24 04:06 70 20 91 Room Air 06/04/24 03:15 67 18 92 Room Air 06/04/24 02:33 78 13 93 Room Air 06/04/24 02:00 71 13 94 Room Air 06/04/24 01:45 83 19 146/84 H 97 Room Air 06/04/24 01:30 90 22 93 Room Air 06/04/24 01:00 79 18 146/84 H 95 Room Air 06/04/24 00:33 81 16 93 Room Air 06/03/24 23:09 87 06/03/24 23:03 85 13 95 Room Air Laboratory Results 06/04/24 04:27 06/04/24 04:27 PG Care Time/CCT Total # of Minutes Spent Total Time Spent with Patient: Total time spent is greater than 50% in coordination of care (as documented) at patient's floor/unit and/or counseling patient: Coding Level of Care Code 13716 SUB INP/OBS CARE 3/50MIN Diagnoses Bilateral lumbar radiculopathy M54.16 Spinal stenosis of lumbar region M48.061 Coronary artery disease I25.10 Hypercholesterolemia E78.00 Benign essential hypertension I10
[2024-06-04] MEDS: methylPREDNISolone 60 MG in SYRINGE 0 ML IV SCH (14:50)
[2024-06-04] MEDS: MELATONIN 3 MG TAB PO PRN (23:20)
--- NOTE | 2024-06-05 01:53 | Billing Data ---
Date of Service June 05, 2024 Coding Level of Care Code 47574 INT INP/OBS CARE
[2024-06-05] MEDS ORDERED: MoRPHine SULFATE 2 MG/ML CARP IV PRN (02:30)
[2024-06-05] MEDS: HYDROmorphone INJ 0.5 MG/0.5 ML SYR IV STA (02:42)
[2024-06-05] MEDS: MoRPHine SULFATE 4 MG/ML 1 ML CARP\\VIAL IV PRN (05:46)
[2024-06-05 06:59] LABS: Mean Corpuscular Hemoglobin 32.3 pg (25.0-34.0); Mean Corpuscular Hgb Conc 33.3 g/dL (32.0-36.0); Mean Corpuscular Volume 96.8 fL (80.0-100.0); Mean Platelet Volume 9.9 fL (9.4-12.4); Platelet Count 220 K/uL (130-400); RDW Coefficient of Variation 12.6 % (11.5-14.5); RDW Standard Deviation 44.4 fL (36.4-46.3); Red Blood Count 4.34 M/uL (4.70-6.10)
[2024-06-05] MEDS: FENOFIBRATE PO SCH (07:28)
[2024-06-05 07:32] LABS: BUN Creatinine Ratio 31.8 (10-20); Calcium 10.4 mg/dl (8.6-10.3); Potassium 4.3 mmol/L (3.5-5.1)
[2024-06-05 07:34] LABS: Basophils # (auto) 0.01 K/uL (0.00-0.20); Basophils % (auto) 0.1 %; Immature Granulocytes # (auto) 0.11 K/uL (0.01-0.20); Immature Granulocytes % (auto) 0.7 %; Lymphocytes # (auto) 1.01 K/uL (1.20-3.40); Lymphocytes % (auto) 6.2 %; Monocytes # (auto) 0.35 K/uL (0.11-0.59); Monocytes % (auto) 2.2 %; Neutrophils # (auto) 14.72 K/uL (1.40-6.50); Neutrophils % (auto) 90.8 %
[2024-06-05] MEDS ORDERED: HYDROmorphone INJ 0.5 MG/0.5 ML SYR IV PRN (08:59)
--- NOTE | 2024-06-05 09:02 | Hospitalist Progress Note ---
Date of Service June 05, 2024 Assessment & Plan (1) Spinal stenosis of lumbar region: (2) Bilateral lumbar radiculopathy: (3) Gout: (4) Coronary artery disease: Plan Vince Seymour is a 63 year-old male with a medical history significant for osteoporosis, spinal stenosis of lumbar region, CAD, gout, prediabetes, HLD who presented to the ED for increased lower back pain. Severe Lumbar Stenosis -Acute flare of chronic lumbar back pain after catching himself from falling while holding heavy object -Not controlled by home Vicodin prescription -New bilateral leg and groin numbness since presenting to ED, no loss of bowel or bladder control. Numbness/tingling seems to change positioninally per patient. -CT lumbar spine was ordered prior to our admission of the patient due to the concern of symptoms that could represent cauda equina -CT lumbar spine: "Severe spinal canal stenosis at L2-3, L3-4 and L4-5. Recommend MRI for further evaluation. Moderately severe bilateral L4-5 neuroforaminal stenoses." -Will attempt to order MRI again, this is necessary for proper diagnosis -Ortho spine consulted, as patient is established with [facility] [place] [place]o and pain management. Appreciate recommendations -Received 10mg IV dexamethasone in ED. Ordered additional 6mg IV dexamethasone for a.m. Additional recommendations for steroids per ortho -Pain control with IV dilaudid, Tylenol, lidocaine patch CAD, HTN- continue metoprolol, lisinopril, statin Gout- continue allopurinol Admit to: med/surg VTE Prophylaxis: Lovenox Diet: NPO Code Status: Full code Admission and Anticipated Discharge Date Admission Date: June 03, 2024 Results & Data Results & Data Vital Signs (Past 12 Hours) Vital Signs Temp Pulse Resp BP Pulse Ox O2 Del Method 06/05/24 08:46 97.7 F 80 16 149/82 H 95 Room Air PG Care Time/CCT Total # of Minutes Spent Total Time Spent with Patient: Total time spent is greater than 50% in coordination of care (as documented) at patient's floor/unit and/or counseling patient: Coding Diagnoses Spinal stenosis of lumbar region M48.061 Bilateral lumbar radiculopathy M54.16 Gout M10.9 Coronary artery disease I25.10
[2024-06-05] MEDS: HYDROmorphone INJ 1 MG/ML SYRINGE IV STA ×2 (09:17→19:47)
[2024-06-05] MEDS: HYDROmorphone INJ 1 MG/ML SYRINGE IV PRN (12:57)
--- NOTE | 2024-06-05 15:20 | Orthopedic Consultation ---
Date of Consultation June 05, 2024 Assessment & Plan (1) Low back pain: (2) Bilateral lumbar radiculopathy: (3) Spinal stenosis of lumbar region: (4) Weakness of both lower extremities: (5) Acquired bilateral foot drop: Plan Patient has been admitted for a few days now and his symptoms have been stable at this point. Patient does have intact lower extremity proximal muscle strength on resisted testing. His only strength deficits on exam are to EHL and ankle dorsiflexion, most consistent with an L4/L5 distribution pattern. Patient does report diminished gluteal sensation however on exam he has normal sensation in medial thighs and groin when I test, he has not had any occasions of bowel or bladder incontinence, he has been voiding normally. He says that he is still able to control his bowel and bladder function. Upon our visit today, he feels that he actually has to have a bowel movement, but that maybe he is a little constipated from the pain medications. On several different occasions there has been an attempt already to obtain a lumbar spine MRI since his admission. Thus far they have been unable to obtain the MRI due to the patient's intractable pain. Currently, we are unable to obtain a stat MRI due to the patient continuing to be unable to lie still supine for any lengthy period of time due to severity of pain. Checking with anesthesia he is unable to get a sedated MRI until likely tomorrow. Supervising Physician Co-Signing Physician Notes I have come in to examine the patient personally this evening, he has already been scheduled for transfer to [facility] and accepted by neurosurgery. I discussed the possibility of staying to get the MRI here and possible surgical intervention. I explained that although I am not [employer] this week and was just made aware of his case this afternoon and would be happy to help in any way, but we will require updated imaging given the change in symptoms from prior MRI. Given that he is neurologically stable for the past few days and he is already preparing for transfer he prefers to continue with transfer to [place] for imaging and definitive care. I explained that he will likely need urgent decompression and we could continue to work towards that here but he wishes to proceed to [place]. History of Present Illness Reason for Consultation: "severe stenosis of L spine, leg numbness" Requesting Physician: Bennie,Jenelle M., DO Attending Physician: Bill Miller MD History of Present Illness Patient is a 63-year-old male that presented to the [facility] emergency department via private vehicle on 06/03/2024 accompanied by anjum with complaints of "back pain, lower extremity pain". The patient noted that this past Thursday 05/31 he was lifting a heavy bin of deer meat, along with bone and blood, which he feels was in total about 50 pounds. He was carrying this up a flight of stairs and sort of took a misstep and had a twisting maneuver type of injury which seemed to set off some right paracentral to right lumbosacral region pain. After this incident, he also noted some diminished sensation to his left genitalia and left posterior thigh region. However, since this first occurred, this has now progressed to a report of numbness to his genitals, buttocks, and posterior thighs. He does also report some diminished sensation to the lateral thighs and lateral, posterior lower legs. Patient states that he has been able to stand up only enough to transfer from the bed to the bedside chair, but that he would be unable to walk to the bathroom by himself. His reasoning for being unable to do this is due to severe low back pain, as well as weakness in both legs. Patient is denying particular dermatomal pattern pain in the lower extremities, but again, he does report the diminished sensation and numbness to the lower extremities mostly in posterior thighs and feet. He previously has followed with [facility] pain management due to chronic low back pain, and has a history of having undergone lumbar facet joint ablation, lumbar trigger point injections, as well as a lumbar AGUSTIN just recently at the beginning of April. However he notes that this symptomatology is different than what he had been experiencing. He previously noted symptoms only down 1 extremity, but now both are involved. Patient says that the pain medications he has been getting while hospitalized have been helping the pain short-term and his numbness and weakness symptoms have not improved at all. He has been admitted since Sunday, MRI was scheduled however he has been unable to get an MRI given inability to lay still. He retains normal control of bladder, reports knowing when to need to urinate. He has not had a bowel movement although feels he is constipated due to pain medications. Allergies Allergy/AdvReac Type Severity Reaction Status Date / Time iodine Allergy Severe RASH, HIVES Verified 06/04/24 10:40 atorvastatin AdvReac Intermediate ACHEY, Verified 06/04/24 10:40 JOINT STIFFNESS ezetimibe AdvReac Intermediate JOINT Verified 06/04/24 10:40 PAIN/STIFFNESS Home Medications Medication Instructions Recorded Confirmed Type naloxone 1 mg/mL injection syringe 1 mg IM ONCE PRN opioid overdose 12/19/18 06/04/24 Rx #2 mL albuterol sulfate 90 mcg/actuation 2 puffs inhalation Q4H PRN 08/22/19 06/04/24 Rx aerosol inhaler shortness of breath or wheezing #8.5 grams fenofibrate micronized 200 mg 200 mg PO DAILY #90 caps 04/09/23 06/04/24 Rx capsule lisinopril 30 mg tablet 30 mg PO DAILY #90 tabs 08/01/23 06/04/24 Rx metoprolol succinate 50 mg 50 mg PO DAILY #90 tabs 08/20/23 06/04/24 Rx tablet,extended release 24 hr rosuvastatin 20 mg tablet 20 mg PO DAILY #90 tabs 08/20/23 06/04/24 Rx nitroglycerin 0.4 mg sublingual 0.4 mg sublingual Q5M PRN chest 09/27/23 06/04/24 Rx tablet pain #25 tabs allopurinol 300 mg tablet 600 mg (2 x 300 mg) PO DAILY #180 10/22/23 06/04/24 Rx tabs sildenafil 100 mg tablet See Rx Instructions PO DAILY PRN 11/01/23 06/04/24 Rx sexual activity #30 tabs aspirin 81 mg tablet,delayed 81 mg PO DAILY 01/08/24 06/04/24 History release hydrocodone 7.5 mg-acetaminophen 1 - 2 tab PO .Q4-6HRS PRN pain 05/16/24 06/04/24 Rx 325 mg tablet #210 tabs polyethylene glycol 3350 17 gram 17 g PO DAILY PRN constipation #14 06/05/24 Rx oral powder packet (Miralax) ea Patient History Medical History Fatigue Non-restorative sleep Snoring Hypokalemia Dyslipidemia Urinary frequency Prostate cancer screening declined Open wound of thumb Close exposure to COVID-19 virus Cough COVID-19 virus infection Chronic back pain Surgical History Trigger finger History of colonoscopy History of cardiac cath Family History Other Colonic polyp No pertinent family history Social History Smoking Status: Never smoker Second Hand Exposure: No; Do You Dip or Chew Tobacco: No; Hx Alcohol Use: Yes Alcohol type: beer Hx Substance Use: No Preferred Language: Yakut Communication Ability: Effective Visual Impairment: No Limitations Hearing Ability: Normal 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 Mood and affect is appropriate. Does not appear in acute distress. When unassisted, unable to complete a full movement from sitting to standing. Requires assist for ambulation. Reports saddle anesthesia symptoms and numbness to bilateral thighs and lower legs. HEAD: Normocephalic; atraumatic. NECK: Trachea is midline. CHEST: Regular chest respiration and excursion. EXTREMITIES: Diminished ROM. No TTP. Distal sensation and pulses intact bilaterally, but sensation is reduced. BACK: Diminished ROM. Moderate right lumbosacral region tenderness.Inspection/palpation demonstrates some loss of normal lumbar lordotic curvature. NEURO: CN II-XII grossly intact with no focal deficits noted. Normal gait. Awake, alert, and oriented x 3. Sensation intact to light touch of the bilateral L2-S1 dermatomes. Patellar Reflex R absentL absent Achilles Reflex R absentL absent SKIN: No lesions, erythema, or rashes noted. LOWER EXTREMITIES: Positive straight leg raise bilaterally (increase in low back pain). R Hip flexion 5/5 knee extension 5/5 ankle dorsiflexion 2-/5; ankle plantar flexion 5/5; EHL 0/5 L Hip flexion 5/5 hip extension 5/5; knee extension 4/5 ankle dorsiflexion 0/5; ankle plantar flexion 5/5; EHL 0/5 Results & Data Vital Signs (Past 12 Hours) Vital Signs Temp Pulse Resp BP Pulse Ox O2 Del Method 06/05/24 15:17 36.6 C 68 16 131/75 94 Room Air 06/05/24 08:46 36.5 C 80 16 149/82 H 95 Room Air Diagnostic Findings LUMBAR SPINE MRI HISTORY: M48.061 - Spinal stenosis, lumbar region without neurogen... TECHNIQUE: Multiplanar multisequence MRI of the lumbar spine was performed without the use of contrast. COMPARISON:None. FINDINGS: For the purpose of the report the L5-S1 disc space will be located on axial image 33 of 36. No fractures within the lumbar spine. There is 3 mm of anterolisthesis of L4 on L5. Mild disc space narrowing at L1-L2. Mild to moderate disc space narrowing at L3-L4 and L4-L5. Mild disc space narrowing within the lower thoracic spine. The conus terminates at the L1 level. The visualized sacrum is intact. Severe facet degenerative changes at L4-L5. Dadx-sa-ynghgyym facet degenerative changes throughout the remaining lumbar spine. Paravertebral soft tissues are unremarkable. There are small broad-based posterior disc bulges at T11-T12 and T12-L1 resulting in mild central canal narrowing. L1-L2: Broad-based posterior disc bulge with ligamentum and facet hypertrophy resulting in moderate central canal narrowing with an AP diameter of 6.3 mm. There is moderate to severe bilateral subarticular stenosis with moderate bilateral neural foraminal narrowing due to the disc bulge and facet hypertrophy. L2-L3: Broad-based posterior disc bulge with a 4 mm focal central disc protrusion. In conjunction with the mid omentum and facet hypertrophy this results in moderate to severe central canal narrowing with an AP diameter of 5.8 mm. There is severe narrowing of the lateral recesses with moderate to severe bilateral neural foraminal narrowing due to the disc bulge and facet hypertrophy. L3-L4: Broad-based posterior disc bulge with ligamentum and facet hypertrophy resulting in moderate central canal narrowing with an AP diameter of 6.6 mm. There is moderate to severe bilateral neural foraminal narrowing and severe subarticular stenosis. L4-L5: Broad-based posterior disc bulge with a 6 mm focal central disc protrusion. There are severe ligamentum and facet hypertrophy resulting in moderate to severe central canal narrowing with an AP diameter of 6.6 mm. There is severe narrowing of the lateral recesses with impingement of the transiting bilateral L5 nerve roots. There is also severe bilateral neural foraminal narrowing. L5-S1: Moderate to severe left facet degenerative changes with facet hypertrophy resulting in moderate to severe left-sided neural foraminal narrowing. No significant central canal or right- sided neural foraminal narrowing. IMPRESSION: 1. No fractures within the lumbar spine. 2. Multilevel degenerative changes as described above most pronounced at the L2- L3 and L4-5 levels. 3. Grade 1 anterolisthesis of L4 on L5. ACT 112: Negative or not required by law. Electronically signed by:Rg Johansen M.D. 02/07/2024 8:14 AM Dictated: 02/07/24804 Transcribed: 02/07/[address] 06/03/24 20:36 Exam(s): CT L SPINE EXAM: CT Lumbar Spine Without Intravenous Contrast CLINICAL HISTORY: Reason for exam: lower back pain, groin numbness. TECHNIQUE: Axial computed tomography images of the lumbar spine without intravenous contrast. CTDI is 39.4 mGy and DLP is 1143.22 mGy-cm. Automated exposure control was utilized for the study. A dose lowering technique was utilized adhering to the principles of ALARA. COMPARISON: No relevant prior studies available. FINDINGS: Vertebrae: Unremarkable. No acute fracture. Discs/spinal canal/neural foramina: No acute findings. Severe spinal canal stenosis at L2-3, L3-4 and L4-5. Moderately severe bilateral L4-5 neuroforaminal stenoses. Soft tissues: Hepatic steatosis. IMPRESSION: Severe spinal canal stenosis at L2-3, L3-4 and L4-5. Recommend MRI for further evaluation. Moderately severe bilateral L4-5 neuroforaminal stenoses. Electronically signed by: Tracy West MD 06/03/24 23:13 PM (1) Low back pain Chronicity: chronic Back pain laterality: unspecified Sciatica presence: with sciatica Sciatica laterality: bilateral sciatica Qualified Code(s): M54.41 - Lumbago with sciatica, right side; M54.42 - Lumbago with sciatica, left side; G89.29 - Other chronic pain (3) Spinal stenosis of lumbar region Neurogenic claudication status: with neurogenic claudication Qualified Code(s): M48.062 - Spinal stenosis, lumbar region with neurogenic claudication
--- NOTE | 2024-06-05 18:01 | Discharge Summary ---
Discharge Summary Date of Service June 05, 2024 Principal Dx & Hospital Course #1 = Principal Diagnosis (1) Spinal stenosis of lumbar region: (2) Bilateral lumbar radiculopathy: (3) Gout: (4) Coronary artery disease: Plan Vince Seymour is a 63 year-old male with a medical history significant for osteoporosis, spinal stenosis of lumbar region, CAD, gout, prediabetes, HLD who presented to the ED for saddle anesthesia and b/l lower leg numbness and weakness, could not lay flat for MRI did have discussion with ortho spine and no capability to have surgical intervention if needed, no ability to have urgent MRI with sedation, patient agreeable to transfer, Pt accepted by [facility] Severe Lumbar Stenosis -Acute flare of chronic lumbar back pain after catching himself from falling while holding heavy object -Not controlled by home Vicodin prescription -New bilateral leg and groin numbness since presenting to ED, no loss of bowel or bladder control. Numbness/tingling seems to change positionally per patient. -CT lumbar spine"Severe spinal canal stenosis at L2-3, L3-4 and L4-5. Recommend MRI for further evaluation. Moderately severe bilateral L4-5 neuroforaminal fernanda noses." -cannot perform MRI due to pain, cannot have sedated MRI timely -Ortho spine consulted, as patient is not established with [facility] but sees [facility] medicine at [facility] and has previously seen [place] [facility] -Received 10mg IV dexamethasone in ED. additional 6mg IV dexamethasone, pt without any improvement in neurological deficits, pain intermittently controlled -Pain control with IV dilaudid, Tylenol, lidocaine patch CAD s/p PCI x 6 (RCA, PDA, PL, LAD): No angina. Stable exercise tolerance. HTN- continue metoprolol, lisinopril, statin Gout- continue allopurinol Diet: NPO Notes For Next Care Provider Patient did have enoxaparin therapy and aspirin while inpatient [facility] last doses in the a.m. 06/05/2024 Admission HPI Per Admitting Provider Vince Seymour is a 63 year-old male with medical history significant for HLD, gout, HTN, CAD who presented to the ED for concerns of worsening lower back pain. Patient reports that over the weekend he was carrying a heavy container of meat up the stairs when he missed his footing and had to to catch himself and the container of meat from falling- this action caused a sudden pain in his lower back. Patient follows with [facility] as well as orthopedics- had last L4-L5 epidural steroid injection in April. The day after the above incident, patient endorses increased pain but was still able to do daily activities. However last night he was unable to sleep at all due to the pain, despite taking his prescribed Vicodin which is what prompted his trip to the ED. At present, patient endorses significant pain at middle of low back as well as numbness/tingling going down his legs which seems to change based on the position he is sitting. States he went to use the urinal at his bedside and was able to urinate however felt that his groin area felt off/numb. Denies loss of bowel or bladder control. While in the ED, patient was ordered an MRI but patient was unable to lay flat for long enough for the imaging to be completed. Patient states he was told he could possibly have sedation for the MRI but they wouldn't be able to do this now as he recently ate. Denies chest pain, shortness of breath, fever, bodyaches or chills. ED Course: -CBC, CMP -IV Dilaudid, Fentanyl, Tylenol Discharge Plan Discharge Items Patient Disposition: Transfer Acute Care Hospital Reason For Visit: LOWER BACK PAIN Discharge Diagnosis: concern for acute spinal chord injury Condition on Discharge: Good Activity: Per Instructions section Non-emergency contact: Primary Care Provider Call non-emergency contact if: your symptoms worsen Follow-up/Referrals: Edmundo Luz MD [Primary Care Provider] - Diet: Nothing by Mouth Addtl Attending Provider Instructions: transfer to acute care hospital for concern for acute spinal chord injury Pending Studies at Discharge: No Stand-Alone Forms: My [facility] Skilled Items Patient informed of condition?: Yes DNR: No Discharge Level of Care: Other Communicable Disease: No Discharge Prognosis: Other Lines: Peripheral IV Urinary Catheter: No Medications and DC Order Prescriptions: New polyethylene glycol 3350 [Miralax] 17 gram Powder In Packet 17 g PO DAILY PRN (Reason: constipation) Qty: 14 0RF Continued fenofibrate micronized 200 mg capsule 200 mg PO DAILY Qty: 90 3RF lisinopril 30 mg tablet 30 mg PO DAILY Qty: 90 3RF metoprolol succinate 50 mg tablet extended release 24 hr 50 mg PO DAILY Qty: 90 3RF nitroglycerin 0.4 mg tablet, sublingual 0.4 mg SL Q5M PRN (Reason: chest pain) Qty: 25 3RF Rx Instructions: pt does not need immediately. allopurinol 300 mg tablet 600 mg PO DAILY Qty: 180 3RF albuterol sulfate 90 mcg/actuation HFA aerosol inhaler 2 puffs INH Q4H PRN (Reason: shortness of breath or wheezing) Qty: 8.5 5RF Held rosuvastatin 20 mg tablet 20 mg PO DAILY Qty: 90 3RF Hold Instructions: Provider's Order Rx Instructions: per Dr. Gomez 09/2020 sildenafil 100 mg tablet See Rx Instructions PO DAILY PRN (Reason: sexual activity) Qty: 30 11RF Hold Instructions: Provider's Order Rx Instructions: 1/2-1 tab PO daily PRN; administer 30 minutes to 4 hours before activity hydrocodone-acetaminophen 7.5-325 mg tablet 1 - 2 tab PO .Q4-6HRS MDD 7 PRN (Reason: pain) Qty: 210 0RF Hold Instructions: Order Change naloxone 1 mg/mL syringe 1 mg IM ONCE PRN (Reason: opioid overdose) Qty: 2 0RF Hold Instructions: Provider's Order aspirin 81 mg Tablet,Delayed Release (Dr/Ec) 81 mg PO DAILY Hold Instructions: Provider's Order Discharge Orders: Discharge Order (Routine); Ordered 06/05/24 Ordered By: Bill Ramírez/Other Patient Handouts: Spinal Cord Injury Admission Data Admit Date/Time: 06/03/24 23:54 Attending Provider: Bill Miller Admit Provider: Jenelle Avery Primary Care Provider: Edmundo Luz Other Providers: Colby Barnett; Ananth Mar; Vickey Simmons; Andrea Cao; Hortensia Thayer; Blair Brambila; Edmundo Tilley Hospital Stay Data Consultations 06/03/24 19:32 ED Decision to Admit Stat 06/04/24 08:00 Consult Orthopedic Spine Surgery Routine Diagnostic Imagining Performed 06/03/24 20:36 CT lumbar spine wo con Stat Pending Results Patient Have Any Pending Studies at Discharge: No Discharge Instructions Given to Patient (Per Discharging Provider) transfer to acute care hospital for concern for acute spinal chord injury Total Time Total Time Spent Total Time Spent (In Minutes): It required greater than 30 minutes to prepare this patient for discharge. Coding Level of Care Code 13998 INP/OBS DISCH >30 MIN Diagnoses Spinal stenosis of lumbar region with neurogenic claudication M48.062 Neurogenic claudication status: with neurogenic claudication Bilateral lumbar radiculopathy M54.16 Gout M10.9 Coronary artery disease I25.10
[2024-06-05 19:27] VITALS: BP 141/94; PULSE 76; RESP 18; TEMP 98.2; O2SAT 96
== END 2024-06-05 19:55 | disposition short-term general hospital (02) | DRG 552 ==
LOC: ED 12:55 → SUATTDRO 23:54 → EDINP 23:54 → 3W 06-04 00:16